=== PATIENT | female | born 1965 | race Caucasian/White ===

== ENCOUNTER 2018-11-29 14:53 | Outpatient (CLI) | payer BC | END 2018-11-29 14:54 | disposition home or self-care (01) | LOC: BICMAMMO 14:53 | PROVIDERS: ATTEND Family Medicine | DX: Z12.31 Encounter for screening mammogram for malignant neoplasm of breast (principal) | CPT/HCPCS: 77063; 77067 ==

== ENCOUNTER 2019-12-03 08:15 | Outpatient (CLI) | payer BC ==
--- NOTE | 2019-12-03 08:58 | MMO ---
Bilateral MAMMO Bilat Di[facility]. CLINICAL HISTORY: Patient is 54 years old and is seen for diagnostic exam. The patient has no family history of breast cancer. The patient has no personal history of cancer. The patient has a history of right needle biopsy in 2012 - benign. VIEWS: The views performed were: bilateral craniocaudal with tomosynthesis; bilateral mediolateral oblique with tomosynthesis; and bilateral mediolateral with tomosynthesis. FILMS COMPARED: The present examination has been compared to prior imaging studies performed on 11/06/2015, at [facility] on 11/28/2017 and 11/29/2018, and at [facility] on 11/14/2016. This study has been interpreted with the assistance of computer-aided detection. MAMMOGRAM FINDINGS: There are scattered fibroglandular densities. Nodularity is stable. There are no suspicious masses, suspicious calcifications, or new areas of architectural distortion. IMPRESSION: THERE IS NO MAMMOGRAPHIC EVIDENCE OF MALIGNANCY. A ROUTINE FOLLOW-UP MAMMOGRAM IN 1 YEAR IS RECOMMENDED. THE RESULTS OF THIS EXAM WERE SENT TO THE PATIENT. ACR BI-RADS Category 2 - Benign finding MAMMOGRAPHY NOTE: 1. A negative mammogram report should not delay a biopsy if a dominant of clinically suspicious mass is present. 2. Approximately 10% to 15% of breast cancers are not detected by mammography. 3. Adenosis and dense breasts may obscure an underlying neoplasm. Reported by: ROXANNA REYES MD Electonically Signed: [id number]
== END 2019-12-03 08:16 | disposition home or self-care (01) ==
LOC: BICMAMMO 08:15
PROVIDERS: ATTEND Physician Assistant
DX: N64.4 Mastodynia (principal)
CPT/HCPCS: 77066; G0279